=== PATIENT | male | born 1945 | race Caucasian/White ===

== ENCOUNTER 2017-07-21 16:01 | Emergency (ER) | payer MEDICARE, OTHER | END 2017-07-21 16:40 | disposition home or self-care (01) | LOC: MADERS 16:01 | DX: S90.121A Contusion of right lesser toe(s) without damage to nail, initial encounter (principal); I44.7 Left bundle-branch block, unspecified; I10 Essential (primary) hypertension; Z79.899 Other long term (current) drug therapy; X58.XXXA Exposure to other specified factors, initial encounter | CPT/HCPCS: 99283 ==

== ENCOUNTER 2017-12-13 11:20 | Outpatient (CLI) | payer MEDICARE, OTHER ==
--- NOTE | 2017-12-13 14:22 | RAD ---
TWO VIEWS CHEST: HISTORY: Chest pain. COMPARISON: Portable film of 12/31/2015. FINDINGS: No infiltrate or vascular congestion seen. Heart size upper normal but stable from prior exam. Osse ous structures unremarkable. IMPRESSION: No acute finding. POS: [facility]
== END 2017-12-13 11:21 | disposition home or self-care (01) ==
LOC: MADRAD 11:20
PROVIDERS: ATTEND Obstetrics & Gynecology
DX: G57.90 Unspecified mononeuropathy of unspecified lower limb (principal)
CPT/HCPCS: 71046

== ENCOUNTER 2023-02-26 11:39 | Outpatient (CLI) | payer MEDICARE | END 2023-02-26 11:40 | disposition home or self-care (01) | LOC: MADRAD 11:39 | PROVIDERS: ATTEND Internal Medicine | DX: Z11.1 Encounter for screening for respiratory tuberculosis (principal) | CPT/HCPCS: 71046 ==